=== PATIENT | female | born 1990 | race Caucasian/White ===

== ENCOUNTER 2021-06-25 20:01 | Emergency (ER) | payer OTHER ==
[~2021-06-25] VITALS: Ht 160 cm; Wt 59.0 kg
[2021-06-25 20:28] LABS: BASO % 1 % (0-3); EOS # 0.1 x10^3/uL (0.0-0.7); EOS % 2 % (0-3); HEMATOCRIT 41.4 % (36.0-47.0); LYMPH # 2.1 x10^3/uL (1.0-4.8); LYMPH % 35 % (24-48); MEAN CORPUSCULAR HEMOGLOBIN 30 pg (25-35); MEAN CORPUSCULAR HGB CONC 34 g/dL (31-37); MEAN CORPUSCULAR VOLUME 90 fL (79-100); MONO # 0.4 x10^3/uL (0.0-1.1); MONO % 6 % (0-9); NEUT # 3.5 x10^3/uL (1.8-7.7); NEUT % 57 % (31-73); PLATELET COUNT 197 x10^3/uL (140-400); RED BLOOD COUNT 4.63 x10^6/uL (3.50-5.40); RED CELL DISTRIBUTION WIDTH 13.1 % (11.5-14.5); WHITE BLOOD COUNT 6.1 x10^3/uL (4.0-11.0)
[2021-06-25 20:40] LABS: CALCIUM 9.4 mg/dL (8.5-10.1); CREATININE 0.7 mg/dL (0.6-1.0); GFR 97.6; POTASSIUM 3.2 mmol/L (3.5-5.1)
[2021-06-25] MEDS: IV NORMAL SALINE 1000ML BAG 1,000 ML IV ONE (20:42)
--- NOTE | 2021-06-25 20:54 | PHYS DOC ---
Past Medical History Past Surgical History: Appendectomy Additional Past Surgical Histo: tonsills,wisom teeth (MANOHAR HILLIARD APRN) Smoking Status: Never Smoker Alcohol Use: None (MANOHAR HILLIARD APRN) General Adult EDM: Chief Complaint: VAGINAL BLEEDING HPI: HPI: Patient is a 30 year old female presents to the emergency department complaining of bright red blood vaginal bleeding over the past 5 days. Patient states she was 14 weeks on Wednesday when she had a miscarriage noting a fetus, and placenta expelled from vagina. Patient states she has been bleeding since, it was recommended that she rest, patient states that when she did rest her bleeding slowed down however she got up today to do laundry and noticed her bleeding came back heavier. Patient reports this was her fifth , has 2 living children, has had 2 other spontaneous abortions. States she sees a director enterprise sales at the [facility]. Patient states that her director enterprise sales told her to come to the ER to get a ultrasound and a D&C. Patient denies nausea, vomiting, diarrhea, recent fever or chills, states she is breast- feeding her [id number] child, denies syncopal episodes, states that she did notice she got dizzy when she stood up today. Patient denies abdominal pain, cramping, or urinary pressure or pain or increased frequency. Patient denies any other physical complaints or physical concerns. (MANOHAR HILLIARD APRN) Review of Systems: Review of Systems: 14 body systems of review of systems have been reviewed. See HPI for pertinent positives and negative responses, otherwise all other systems are negative, nonpertinent or noncontributory. Constitutional: Negative except as outlined in HPI above. Skin: Negative except as outlined in HPI above. Eyes: Negative except as outlined in HPI above. HENT: Negative except as outlined in HPI above. Respiratory: Negative except as outlined in HPI above. Cardiovascular: Negative except as outlined in HPI above. GI: Negative except as outlined in HPI above. : Negative except as outlined in HPI above. Musculoskeletal: Negative except as outlined in HPI above. Integument: Negative except as outlined in HPI above. Neurologic: Negative except as outlined in HPI above. Endocrine: Negative except as outlined in HPI above. Lymphatic: Negative except as outlined in HPI above. Psychiatric: Negative except as outlined in HPI above. (MANOHAR HILLIARD APRN) Heart Score: C/O Chest Pain: No Risk Factors: Risk Factors: DM, Current or recent (<one month) smoker, HTN, HLP, family history of CAD, obesity. Risk Scores: Score 0 - 3: 2.5% MACE over next 6 weeks - Discharge Home Score 4 - 6: 20.3% MACE over next 6 weeks - Admit for Clinical Observation Score 7 - 10: 72.7% MACE over next 6 weeks - Early Invasive Strategies (MANOHAR HILLIARD APRN) C/O Chest Pain: No (ANDREE CASTILLO MD) Current Medications: Current Medications Medications (Trade) Dose Ordered Sig/Hoa Start Time Stop Time Status Last Admin Dose Admin Sodium Chloride 1,000 ml @ 1,000 mls/hr 1X ONCE 06/25/21 20:30 06/25/21 21:29 06/25/21 20:42 1,000 MLS/HR (MANOHAR HILLIARD APRN) Allergies: Allergies: Allergies Coded Allergies Type Severity Reaction Last Updated Verified Penicillins Allergy Intermediate fever/rash 06/25/21 Yes (MANOHAR HILLIARD APRN) Physical Exam: PE: Constitutional: Well developed, well nourished, no acute distress, non-toxic appearance. 30-year-old female in no apparent distress. HENT: Normocephalic, atraumatic. Eyes: Conjunctiva normal, no discharge. Neck: Normal range of motion, no stridor. Cardiovascular: No cyanosis appreciated, distal cap refill less than 2 seconds. Lungs & Thorax: Patient is in no respiratory distress, no audible adventitious lung sounds appreciated. Abdomen: Nontender, no abnormalities noted. Skin: Warm, dry, no erythema, no rash. Back: No tenderness, no deformities. Extremities: No tenderness, no cyanosis, no clubbing, ROM intact, no edema. Neurologic: Alert and oriented X 3, normal motor function, normal sensory function, no focal deficits noted. Psychologic: Affect normal, judgement normal, mood normal. (MANOHAR HILLIARD APRN) Current Patient Data: Labs: Laboratory Tests Test 06/25/21 20:15 White Blood Count 6.1 x10^3/uL (4.0-11.0) Red Blood Count 4.63 x10^6/uL (3.50-5.40) Hemoglobin 14.0 g/dL (12.0-15.5) Hematocrit 41.4 % (36.0-47.0) Mean Corpuscular Volume 90 fL (79-100) Mean Corpuscular Hemoglobin 30 pg (25-35) Mean Corpuscular Hemoglobin Concent 34 g/dL (31-37) Red Cell Distribution Width 13.1 % (11.5-14.5) Platelet Count 197 x10^3/uL (140-400) Neutrophils (%) (Auto) 57 % (31-73) Lymphocytes (%) (Auto) 35 % (24-48) Monocytes (%) (Auto) 6 % (0-9) Eosinophils (%) (Auto) 2 % (0-3) Basophils (%) (Auto) 1 % (0-3) Neutrophils # (Auto) 3.5 x10^3/uL (1.8-7.7) Lymphocytes # (Auto) 2.1 x10^3/uL (1.0-4.8) Monocytes # (Auto) 0.4 x10^3/uL (0.0-1.1) Eosinophils # (Auto) 0.1 x10^3/uL (0.0-0.7) Basophils # (Auto) 0.0 x10^3/uL (0.0-0.2) Sodium Level 138 mmol/L (136-145) Potassium Level 3.2 mmol/L (3.5-5.1) L Chloride Level 102 mmol/L (98-107) Carbon Dioxide Level 25 mmol/L (21-32) Anion Gap 11 (6-14) Blood Urea Nitrogen 11 mg/dL (7-20) Creatinine 0.7 mg/dL (0.6-1.0) Estimated GFR (Cockcroft-Gault) 97.6 Glucose Level 99 mg/dL (70-99) Calcium Level 9.4 mg/dL (8.5-10.1) Laboratory Tests 06/25/21 20:15 Laboratory Tests 06/25/21 20:15 Vital Signs: Vital Signs Date Time Temp Pulse Resp B/P (MAP) Pulse Ox O2 Delivery O2 Flow Rate FiO2 06/25/21 20:01 98.0 103 18 126/76 100 Room Air 98.0 (MANOHAR HILLIARD APRN) EKG: EKG: [] (MANOHAR HILLIARD APRN) Radiology/Procedures: Radiology/Procedures: [] (MANOHAR HILLIARD APRN) Radiology/Procedures: [facility] [address] [place] [address] IMAGING REPORT Signed PATIENT: MAYANK HARRELL ACCOUNT: [id number] : 1990 LOCATION: ER AGE: 30 SEX: F EXAM STATUS: REG ER ORD. PHYSICIAN: MANOHAR HILLIARD APRN REASON: 5 days status post spontaneous , rule out retained products PROCEDURE: OB TRANSVAG Obstetric ultrasound, transvaginal: Reason for examination: 5 days status post spontaneous . Evaluate for retained products. Uterus measures 6.9 x 6.6 x 3.1 cm in greatest dimension. Focal uterine mass is not seen. Endometrium however appears thickened with the complex appearance which would be consistent with some retained products of conception. No gestational sac, yolk sac or embryo are identified which would be consistent with patient's history of spontaneous . Right ovary measures 2.5 x 2.4 x 1.3 cm in greatest dimension with normal vascular flow and no mass. Left ovary measures 1.8 x 2.5 x 1.0 cm in greatest dimension and contains a couple of follicles and shows normal vascular flow and no mass. IMPRESSION: Thickened complex appearance to the endometrium which would be consistent with some retained products of conception. Electronically signed by: Rebecca Hampton MD (06/25/2021 11:07 PM) [facility] and SIGNED BY: REBECCA HAMPTON MD DATE: 06/25/21 [id number] (ANDREE CASTILLO MD) Course & Med Decision Making: Course & Med Decision Making Pertinent Labs and Imaging studies reviewed. (See chart for details) 30-year-old female, vital signs reviewed, presents to the emergency department concerning vaginal bleeding after having miscarriage 5 days ago. Patient's physical examination is unremarkable, patient's vital signs within normal limits. Called and discussed patient case with [employer] Dr. Alanis who recommended patient have ultrasound, CBC. If no retained products and not anemic to send home and follow-up in office. Labs ordered, ultrasound ordered. Pending ultrasound report, end of shift report given to ED attending physician Dr. Castillo, Dr. Castillo has assumed patient care at this time. (MANOHAR HILLIARD APRN) Course & Med Decision Making Accepted care of the patient at end of [employer] DIRECTOR OF ADMISSIONS shift. Pending ultrasound read. Per ultrasound read it shows a possible retained POC. But feeling better after fluids. Discussed with [employer], Dr. Alanis, he states that if patient is stable he can follow-up in clinic for further management. (ANDREE CASTILLO MD) Dragon Disclaimer: Dragon Disclaimer: This electronic medical record was generated, in whole or in part, using a voice recognition dictation system. (MANOHAR HILLIARD APRN) Departure Departure Impression: Primary Impression: Miscarriage Disposition: 01 HOME / SELF CARE / HOMELESS Condition: STABLE Referrals: SURAJ BROWN MD (PCP) MANOHAR ALANIS MD Patient Instructions: Miscarriage MANOHAR HILLIARD APRN Jun 25, 2021 20:54 ANDREE CASTILLO MD Jun 25, 2021 23:25
[2021-06-25] MEDS: POTASSIUM CHLORIDE 20 MEQ TABLET.ER. PO ONE (23:08)
--- NOTE | 2021-06-25 23:09 | RAD ---
Obstetric ultrasound, transvaginal: Reason for examination: 5 days status post spontaneous . Evaluate for retained products. Uterus measures 6.9 x 6.6 x 3.1 cm in greatest dimension. Focal uterine mass is not seen. Endometrium however appears thickened with the complex appearance which would be consistent with some retained p roducts of conception. No gestational sac, yolk sac or embryo are identified which would be consisten t with patient's history of spontaneous . Right ovary measures 2.5 x 2.4 x 1.3 cm in greatest dimension with normal vascular flow and no mass. Left ovary measures 1.8 x 2.5 x 1.0 cm in greatest dimension and contains a couple of follicles and s hows normal vascular flow and no mass. IMPRESSION: Thickened complex appearance to the endometrium which would be consistent with some retained products of conception. Electronically signed by: Mitali Mcclure MD (06/25/2021 11:07 PM) JAYY
[2021-06-25 23:30] VITALS: BP 114/73
== END 2021-06-25 23:59 | disposition home or self-care (01) ==
LOC: ER 20:01
DX: O03.9 Complete or unspecified spontaneous abortion without complication (principal); Z3A.14 14 weeks gestation of pregnancy; Z90.89 Acquired absence of other organs; Z88.0 Allergy status to penicillin
CPT/HCPCS: 36415; 76817; 80048; 85025; 96360; 96361; 99285; J7030